=== PATIENT | female | born 1960 | race Two or more races ===

== ENCOUNTER 2016-11-20 13:35 | Emergency (ER) | payer BC, OTHER ==
[2016-11-20 13:41] VITALS: BP 128/80; PULSE 83; TEMP 98.6; BMI 27.3
--- NOTE | 2016-11-20 13:50 | PDOC ---
History of Present Illness - General History Source: Patient Exam Limitations: No Limitations - History of Present Illness Initial Comments: 11/20/16 14:59 The patient is a 56 year old female, with a significant past medical history of breast cancer(Bilateral mastectomy), GERD, and hyperlipidemia, who presents to the emergency department complaining of a nonproductive cough for approximately 4 days. The patient reports associated chest pain, but denies that the chest pain is pleuritic in nature. She reports associated headache, body aches, chills , and subjective fever. The patient reports her fever began last night, but reports she did not measure her TMax. The patient states she feels her chest is congested, but denies any shortness of breath, diaphoresis, or palpitations. The patient reports prior to the onset of her symptoms she was taking care of her 2.5 year old granddaughter, who had rhinorrhea and cough. The patient also reports she recently returned from [facility] on 11/10/16. However, prior to her trip to [facility], the patient reports 3 other episodes of severe coughing since July 2016. The patient denies any history of asthma. The patient reports taking robitussin with no relief. The patient denies any nausea, vomiting, diarrhea, or constipation. The patient reports a history of lower back pain prior to the onset of her symptoms, but denies dysuria, hematuria, frequency, or urgency. Allergies: Metoclopramide HCl, sulfamethoxazole, trimethoprim Past Surgical History: Bilateral mastectomy, total hysterectomy Social History: Non-smoker. Denies alcohol or drug use. PCP: Dr. Croft Surgeon: Dr. Joe <Homero Manuel - Last Filed: 11/20/16 15:01> - General History Source: Patient Exam Limitations: No Limitations <Anna Hutchison - Last Filed: 11/20/16 15:13> - General Chief Complaint: Respiratory Stated Complaint: COUGH Time Seen by Provider: 11/20/16 13:41 Past History <Homero Manuel - Last Filed: 11/20/16 15:01> - Past Medical History Anemia: No Asthma: No Cancer: Yes (RIGHT BREAST-DX 01/2013) Cardiac Disorders: No CVA: No COPD: No CHF: No Dementia: No Diabetes: No GI Disorders: Yes (GERD-2006) Disorders: No HTN: No Hypercholesterolemia: Yes (DX 2010) Liver Disease: No Seizures: No Thyroid Disease: No - Surgical History Abdominal Surgery: No Appendectomy: No Cardiac Surgery: No Cholecystectomy: No Lung Surgery: No Neurologic Surgery: No Orthopedic Surgery: No - Psycho/Social/Smoking Cessation Hx Anxiety: No Suicidal Ideation: No Smoking History: Never smoked Have you smoked in the past 12 months: No Hx Alcohol Use: No Drug/Substance Use Hx: No Substance Use Type: None Hx Substance Use Treatment: No <Anna Hutchison - Last Filed: 11/20/16 15:13> - Past Medical History Allergies/Adverse Reactions: Allergies Allergy/AdvReac Type Severity Reaction Status Date / Time metoclopramide HCl Allergy Severe RESPIRATORY Verified 11/20/16 13:37 [From Reglan] DISTRESS,SEIZURES sulfamethoxazole Allergy Severe RESPIRATORY Verified 11/20/16 13:37 [From Bactrim] DISTRESS,CHEST PAIN trimethoprim [From Bactrim] Allergy Severe RESPIRATORY Verified 11/20/16 13:37 DISTRESS,CHEST PAIN Home Medications: Ambulatory Orders Tamoxifen Citrate 20 mg PO DAILY 02/15/16 Azithromycin [Zithromax 250mg Tablets -] 250 mg PO UTDICT #6 tab 11/20/16 Guaifenesin [Mucinex -] 600 mg PO BID #14 tablet.er 11/20/16 Ranitidine HCl [Zantac] 300 mg PO 11/20/16 Review of Systems - Review of Systems Able to Perform ROS?: Yes Comments:: 11/20/16 14:59 GENERAL/CONSTITUTIONAL: Yes: +fever, +chills. No:weakness, loss of appetite. HEAD, EYES, EARS, NOSE AND THROAT: No: change in vision, ear pain, discharge, sore throat, throat swelling. CARDIOVASCULAR: Yes: +chest pain/tightness. No: lightheadedness, palpitations, syncope RESPIRATORY: Yes: +cough. No: shortness of breath, wheezing, hemoptysis, stridor. GASTROINTESTINAL: No: nausea, vomiting, abdominal cramping, diarrhea, rectal bleeding, constipation. GENITOURINARY: No: dysuria, hematuria, frequency, urgency, flank pain. MUSCULOSKELETAL: Yes: +sharp lower back pain. No: neck pain, joint pain, muscle swelling or pain SKIN AND BREASTS: No: lesions, pallor, rash or easy bruising. NEUROLOGIC: Yes: +headache. No: vertigo, paresthesias, weakness ENDOCRINE: No: unexplained weight gain or loss HEMATOLOGIC/LYMPHATIC: No: anemia, easy bleeding, swelling nodes <Juan Manuely - Last Filed: 11/20/16 15:01> *Physical Exam - Vital Signs Last Vital Signs Temp Pulse Resp BP Pulse Ox 98.6 F 83 18 128/80 100 11/20/16 13:36 11/20/16 13:36 11/20/16 13:36 11/20/16 13:36 11/20/16 13:36 - Physical Exam Comments: 11/20/16 15:00 GENERAL: The patient is in no acute distress. HEAD: Normal with no signs of trauma. EYES: PERRLA, EOMI, sclera anicteric, conjunctiva clear. ENT: Ears normal, nares patent, oropharynx clear without exudates. Moist mucous membranes. NECK: Normal range of motion, supple without lymphadenopathy, JVD, or masses. LUNGS: Breath sounds equal, clear to auscultation bilaterally. No wheezes, and no crackles. HEART:Regular rate and rhythm, normal S1 and S2 without murmur, rub or gallop. ABDOMEN: Soft, nontender, normoactive bowel sounds. No guarding, no rebound. EXTREMITIES: Normal range of motion, no edema. No clubbing or cyanosis. No erythema, or tenderness. NEUROLOGICAL: Cranial nerves II through XII grossly intact. Normal speech. No focal neurological deficits. MUSCULOSKELETAL: Back non-tender to palpation, no CVA tenderness SKIN: Warm, Dry, normal turgor, no rashes or lesions noted. <Homero Manuel - Last Filed: 11/20/16 15:01> - Vital Signs Last Vital Signs Temp Pulse Resp BP Pulse Ox 98.6 F 83 18 128/80 100 11/20/16 13:36 11/20/16 13:36 11/20/16 13:36 11/20/16 13:36 11/20/16 13:36 <Anna Hutchison - Last Filed: 11/20/16 15:13> ED Treatment Course - RADIOLOGY Radiograph Interpretation: 11/20/16 15:01 EXAM: CXR INTERPRETED BY: Dr. Barber REVIEWED BY: Dr. Hutchison IMPRESSION: No evidence of active pulmonary disease. - Medications Given in the ED: ED Medications Discontinued Medications Generic Name Dose Route Start Last Admin Trade Name Octavio PRN Reason Stop Dose Admin Guaifenesin 600 mg 11/20/16 14:29 11/20/16 14:36 Mucinex - PO 11/20/16 14:30 600 mg NOW ONE Administration <Homero Manuel - Last Filed: 11/20/16 15:01> Medical Decision Making - Medical Decision Making 11/20/16 13:50 A portion of this note was documented by scribe services under my direction. I have reviewed the details of the note, within reason, and agree with the documentation with the following case summary and management plan written by me. Nursing documentation reviewed and incorporated into medical decision making 11/20/16 15:04 This is a 56-year-old female with a prior history of hyperlipidemia, GERD, breast cancer s/p bilateral mastectomy who presents to the emergency department with a complaint of cough, congestion, chest pain. Patient states that she has had a non productive cough for 4 days Subjective fevers Chest pain which was initially present only when coughing, now persistent No dyspnea on exertion Pt did return from on 10/13 No lower extremity edema or pain Pt states this is the 4th time she has had these symptoms since July She was initially seen by her PMD when this happened previously She tried to follow up with her PMD today but there were no appointments Ill contact = granddaughter DD: pneumonia, bronchitis Less likely PE (pt primary complaint is cough, not chest pain or dyspnea) Will do CXR Pt asked to make an appointment with Dr Nina/Rebecca Return to the ER for worsening or persistent symptoms Return to the ER for new symptoms, if pt chest pain changes or worsens Will start Azithromycin <Anna Hutchison - Last Filed: 11/20/16 15:13> *DC/Admit/Observation/Transfer - Attestations Scribe Attestion: 11/20/16 15:00 Documentation prepared by Homero Manuel, acting as medical billing coordinator for Anna Hutchison MD. <Homero Manuel - Last Filed: 11/20/16 15:01> - Discharge Dispostion Admit: No <Anna Hutchison - Last Filed: 11/20/16 15:13> Diagnosis at time of Disposition: Bronchitis - Discharge Dispostion Disposition: HOME Condition at time of disposition: Stable - Referrals Referrals: Davie Nina MD [Staff Physician] - - Patient Instructions Printed Discharge Instructions: DI for Acute Bronchitis Additional Instructions: Fly Thank you for coming in to the ER today Please take medications as prescribed Please take your temperature Please return to the ER for fevers, chills, persistent cough, shortness of breath, chest pain, weakness Please follow up with your Primary Care physician within 3 days You can also follow up with the Lung Specialist (on your Discharge papers) for further evaluation
[2016-11-20] MEDS ORDERED: guaiFENesin 600 MG TABLET.ER (FP) PO ONE ×2 (14:29→14:34)
[2016-11-20] MEDS ORDERED: ACETAMINOPHEN 325 MG TABLET (FP) PO ONE (14:55)
[2016-11-20] MEDS ORDERED: ACETAMINOPHEN 325 MG TABLET (FP) ONE (15:09)
== END 2016-11-20 15:24 | disposition home or self-care (01) ==
LOC: FER 13:35
DX: J40 Bronchitis, not specified as acute or chronic (principal); Z85.3 Personal history of malignant neoplasm of breast; K21.9 Gastro-esophageal reflux disease without esophagitis; E78.5 Hyperlipidemia, unspecified
CPT/HCPCS: 71020-TC; 99281-25

== ENCOUNTER 2018-01-27 13:53 | Emergency (ER) | payer BC, OTHER ==
[2018-01-27 14:12] VITALS: BP 109/66; PULSE 63; TEMP 98.4; BMI 29.0
[2018-01-27] MEDS ORDERED: MECLIZINE HCL 25 MG TABLET (FP) PO ONE (14:48)
[2018-01-27] MEDS ORDERED: ONDANSETRON 4 MG TABLET PO ONE ×2 (14:50→14:53)
[2018-01-27] MEDS ORDERED: MECLIZINE HCL 25 MG TABLET (FP) ONE (14:53)
--- NOTE | 2018-01-27 15:11 | PDOC ---
History of Present Illness <Nagi Robbins - Last Filed: 01/27/18 17:37> - General History Source: Patient Exam Limitations: No Limitations - History of Present Illness Initial Comments: 01/27/18 18:05 The patient is a 57 year old female with a significant past medical history of right breast cancer (s/p bilateral mastectomy) currently on tamoxifen, GERD, and hyperlipidemia who presents to the emergency department for evaluation of dizziness. The patient reports episode of constant dizziness (room spinning) with associated nausea for a duration of 2 hours beginning at 630pm yesterday before improving. She reports the symptoms were intermittent in nature after 2 hours and is exacerbated by turning either side or walking; however, notes that it is alleviated when lying supine. The patient states she required her s assistance to ambulate due to her severe dizziness. Today, the patient reports generalized weakness and mild intermittent dizziness also worse with movement and improves with rest, which she notes is not as severe as yesterday. She reports one episode of palpitations earlier today. Pt endorses associated nausea with no emesis with her episodes of dizziness. She states she has been feeling off which prompted her to visit the ED for further evaluation. The patient denies any previous history of the aforementioned symptoms. The patient denies chest pain, abdominal pain, shortness of breath, headache, changes to vision/hearing, and changes in speech. Denies fevers, chills, vomiting, diarrhea, constipation, melena, and hematochezia. Denies dysuria, frequency, urgency, and hematuria. Allergies: Metoclopramide HCl, sulfamethoxazole, trimethoprim Past surgical history: Bilateral mastectomy. Social history: No reported cigarette, alcohol, or drug use. PCP: Dr. Shahriar Croft <Tina Salomon - Last Filed: 01/27/18 18:06> - General Chief Complaint: Lightheaded Stated Complaint: DIZZINESS NAUSEA LAST NIGHT Time Seen by Provider: 01/27/18 14:03 Past History - Past Medical History Anemia: No Asthma: No Cancer: Yes (RIGHT BREAST-DX 01/2013) Cardiac Disorders: No CVA: No COPD: No CHF: No Dementia: No Diabetes: No GI Disorders: Yes (GERD-2006) Disorders: No HTN: No Hypercholesterolemia: Yes (DX 2010) Liver Disease: No Seizures: No Thyroid Disease: No - Surgical History Abdominal Surgery: No Appendectomy: No Cardiac Surgery: No Cholecystectomy: No Lung Surgery: No Neurologic Surgery: No Orthopedic Surgery: No - Suicide/Smoking/Psychosocial Hx Smoking History: Never smoked Have you smoked in the past 12 months: No Information on smoking cessation initiated: Yes Hx Alcohol Use: No Drug/Substance Use Hx: No Substance Use Type: None Hx Substance Use Treatment: No <Nagi Robbins - Last Filed: 01/27/18 17:37> <Tina Salomon - Last Filed: 01/27/18 18:06> - Past Medical History Allergies/Adverse Reactions: Allergies Allergy/AdvReac Type Severity Reaction Status Date / Time metoclopramide HCl Allergy Severe RESPIRATORY Verified 01/27/18 13:57 [From Reglan] DISTRESS,SEIZURES sulfamethoxazole Allergy Severe RESPIRATORY Verified 01/27/18 13:57 [From Bactrim] DISTRESS,CHEST PAIN trimethoprim [From Bactrim] Allergy Severe RESPIRATORY Verified 01/27/18 13:57 DISTRESS,CHEST PAIN Home Medications: Ambulatory Orders Tamoxifen Citrate 20 mg PO DAILY 02/15/16 Ranitidine HCl [Zantac] 300 mg PO HS 11/20/16 Esomeprazole Magnesium [Nexium 24Hr] 20 mg PO DAILY 01/27/18 Meclizine HCl [Antivert -] 25 mg PO TID PRN #14 tablet 01/27/18 Review of Systems - Review of Systems Able to Perform ROS?: Yes Comments:: CONSTITUTIONAL:(+)Generalized Weakness. No reported: Fever, Chills, Diaphoresis, Malaise, Loss of Appetite HEENT: No reported: Rhinorrhea, Nasal Congestion, Throat Pain, Throat Swelling, Difficulty Swallowing, Mouth Swelling, Ear Pain, Eye Pain, Visual Changes CARDIOVASCULAR: (+)Palpitations. (+)Lightheadedness. No reported: Chest Pain, Syncope, Irregular Heart Rate, Peripheral Edema RESPIRATORY: No reported: Cough, Shortness of Breath, SOB with Exertion, Orthopnea, Wheezing , Stridor, Hemoptysis GASTROINTESTINAL: (+)Nausea. No reported: Abdominal pain, Abdominal Distension, Vomiting, Diarrhea, Constipation, Melena, Hematochezia GENITOURINARY: No reported: Dysuria, Frequency, Urgency, Hesitancy, Flank Pain, Genital Pain MUSCULOSKELETAL: No reported: Myalgia, Arthralgia, Joint Swelling, Back pain. SKIN: No reported: Rash, Itching, Pallor HEMATOLOGIC/IMMUNOLOGIC: No reported: Easy Bleeding, Easy Bruising, Lymphadenopathy, Frequent infections ENDOCRINE: No reported: Unexplained Weight Gain, Unexplained Weight Loss, Heat Intolerance , Cold Intolerance NEUROLOGIC: (+)Lightheadedness. No reported: Headache, Focal Weakness, Paresthesias, Vertigo, Unsteady Gait, Seizure, Mental Status Changes, Incontinence PSYCHIATRIC: No reported: Anxiety, Depression <Tina Salomon - Last Filed: 01/27/18 18:06> *Physical Exam - Vital Signs Last Vital Signs Temp Pulse Resp BP Pulse Ox 98.4 F 63 16 109/66 100 01/27/18 13:54 01/27/18 13:54 01/27/18 13:54 01/27/18 13:54 01/27/18 13:54 <Nagi Robbins - Last Filed: 01/27/18 17:37> - Vital Signs Last Vital Signs Temp Pulse Resp BP Pulse Ox 98.4 F 63 16 109/66 100 01/27/18 13:54 01/27/18 13:54 01/27/18 13:54 01/27/18 13:54 01/27/18 13:54 - Physical Exam Comments: GENERAL: The patient is awake, alert, and fully oriented, Nontoxic - in no acute distress. HEAD: Normocephalic, atraumatic. EYES: extraocular movements intact, sclera anicteric, conjunctiva clear, + extinguishing horizontal nystagmus ENT: Normal voice, Moist mucous membranes, no carotid bruits appreciated NECK: Normal range of motion, supple LUNGS: Breath sounds equal, clear to auscultation bilaterally. No wheezes, no rhonchi, no rales. HEART: Regular rate and rhythm, without murmur, rub or gallop. ABDOMEN: Soft, nontender, No guarding, no rebound.No CVA tenderness EXTREMITIES: Normal range of motion, no edema. No cyanosis. No erythema, or tenderness. PSYCH: Normal mood, normal affect. SKIN: Warm, Dry, normal turgor. NEURO: Mental status: The patient is oriented x3. Cranial nerves: Cranial nerves II through XII are intact Motor: The upper extremities are 5 over 5 in all muscle groups. The lower extremities are 5 over 5 in all muscle groups. Negative pronator drift Sensation: Sensation is intact to light touch throughout. romberg negative Cerebellar: [id number] is normal in both upper extremities. rapid alternating movements are normal. Gait: Normal. <Tina Salomon - Last Filed: 01/27/18 18:06> Heart Score/ECG Review - ECG Impressions Comment:: 01/27/18 15:12 Twelve-lead EKG was performed and reviewed by me. There is normal sinus rhythm with a normal rate. Rate of 65 The axis is normal. The intervals are normal. There is normal R wave progression T wave flattening noted in lead 3 <Nagi Robbins - Last Filed: 01/27/18 17:37> ED Treatment Course - LABORATORY CBC & Chemistry Diagram: 01/27/18 15:03 01/27/18 15:03 - RADIOLOGY Radiology Studies Ordered: Category Date Time Status HEAD CT WITHOUT CONTRAST [CT] Stat CT Scan 01/27/18 14:39 Ordered - Medications Given in the ED: ED Medications Discontinued Medications Generic Name Dose Route Start Last Admin Trade Name Octavio PRN Reason Stop Dose Admin Meclizine HCl 25 mg 01/27/18 14:48 01/27/18 14:56 Antivert - PO 01/27/18 14:49 25 mg ONCE ONE Administration Ondansetron HCl 4 mg 01/27/18 14:50 01/27/18 14:56 Zofran - PO 01/27/18 14:51 4 mg ONCE ONE Administration <RosendoNagi - Last Filed: 01/27/18 17:37> - LABORATORY CBC & Chemistry Diagram: 01/27/18 15:03 01/27/18 15:03 - ADDITIONAL ORDERS Additional order review: Laboratory Results 01/27/18 15:03 Sodium 134 L Potassium 3.2 L D Chloride 104 Carbon Dioxide 23 Anion Gap 7 L BUN 11 D Creatinine < 0.8 D Creat Clearance w eGFR > 60 Random Glucose 101 Calcium 8.9 Total Bilirubin < 0.5 D AST 23 D ALT 15 D Alkaline Phosphatase 48 Total Protein 6.4 Albumin 3.9 01/27/18 15:03 RBC 4.54 MCV 86.2 MCHC 33.2 RDW 14.0 MPV 7.9 Neutrophils % 58.3 Lymphocytes % 34.5 Monocytes % 5.8 Eosinophils % 0.8 Basophils % 0.6 - Medications Given in the ED: ED Medications Discontinued Medications Generic Name Dose Route Start Last Admin Trade Name Octavio PRN Reason Stop Dose Admin Meclizine HCl 25 mg 01/27/18 14:48 01/27/18 14:56 Antivert - PO 01/27/18 14:49 25 mg ONCE ONE Administration Ondansetron HCl 4 mg 01/27/18 14:50 01/27/18 14:56 Zofran - PO 01/27/18 14:51 4 mg ONCE ONE Administration Potassium Chloride 40 meq 01/27/18 17:34 01/27/18 17:43 K-Dur - PO 01/27/18 17:35 40 meq ONCE ONE Administration <Tina Salomon - Last Filed: 01/27/18 18:06> Medical Decision Making - Medical Decision Making 01/27/18 15:08 57y F hx of hl, breast ca s/p b/l mastetomy 4 years ago, currently on tamaxifen presents with complaint of dizziness. Pt states last night, she suddenly felt dizzy/off balance/vertigo, lastd approximately 2 hrs before improving then was intermittent and worse with head movement or ambualtion and resolved at rest without associated vision changes, diplopia, dysarthria, new numbness/tingling/ weakness, headache, ear ringing. on exam pt in no distress with unremarkble exam beside mild extinguishing horizontal nystagmus suspet peripheral vertigo will ck labs to r/o anemia, metabolic dernagement zofran/meclizine ct head due to hx of ca A portion of this note was documented by scribe services under my direction. I have reviewed the details of the note, within reason, and agree with the documentation with the following case summary and management plan written by me 01/27/18 17:37 pts labs reviewed noted for mild hypokalemia - will replete with PO pt feeling imroved was able to ambulate the bathroom. suspect peripheral vertigo will dc with pmd and ent fu return precautions were discussed I discussed the physical exam findings, ancillary test results and final diagnoses with the patient. I answered all of the patient's questions. The patient was satisfied with the care received and felt comfortable with the discharge plan and treatment plan. The patient will call their primary care physician within 24 hours to arrange follow-up and will return to the Emergency Department with any new, persistent or worsening symptoms. <Nagi Robbins - Last Filed: 01/27/18 17:37> *DC/Admit/Observation/Transfer - Discharge Dispostion Decision to Admit order: No <Nagi Robbins - Last Filed: 01/27/18 17:37> - Attestations Scribe Attestion: Documentation prepared by Tina Salomon, acting as medical leader for Nagi Robbins MD. <Tina Salomon - Last Filed: 01/27/18 18:06> Diagnosis at time of Disposition: Hypokalemia Vertigo, peripheral Qualifiers: Laterality: unspecified laterality Qualified Code(s): H81.399 - Other peripheral vertigo, unspecified ear - Discharge Dispostion Disposition: HOME Condition at time of disposition: Improved - Prescriptions Prescriptions: Meclizine HCl [Antivert -] 25 mg PO TID PRN #14 tablet PRN Reason: Vertigo - Referrals Referrals: Shahriar Croft [Other] Riki Guevara MD [Staff Physician] - - Patient Instructions Printed Discharge Instructions: DI for Vertigo Additional Instructions: Return to the emergency department immediately with ANY new, persistent or worsening symptoms during any headache, blurry vision or double vision, problems with your speech, weakness, numbness, tingling or any other concerns. Take the Meclizine as needed for your vertigo. Your potassium level was a little low - we gave you supplemental potassium, but follow up with dr. Croft to have this rechecked. You MUST call and follow up with your doctor in 3-4 days for further evaluation of your symptoms. Results were discussed with you. Please make sure your doctor reviews the results of your emergency evaluation.
[2018-01-27 15:19] LABS: BASO % 0.6 % (0-2.0); EOS % 0.8 % (0-4.5); HEMATOCRIT 39.2 % (32.4-45.2); LYMPH % 34.5 % (8-40); MCH 28.6 pg (25.7-33.7); MCHC 33.2 g/dl (32.0-36.0); MEAN CELL VOLUME 86.2 fl (80-96); MEAN PLT VOLUME 7.9 fl (7.5-11.1); MONO % 5.8 % (3.8-10.2); NEUT % 58.3 % (42.8-82.8); PLATELET COUNT 205 K/MM3 (134-434); RBC 4.54 M/mm3 (3.60-5.2); WHITE BLOOD COUNT 4.1 K/mm3 (4.0-10.8)
[2018-01-27 15:27] LABS: ALBUMIN 3.9 g/dl (3.5-5.0); ALK PHOS 48 U/L (32-92); ANION GAP 7 (8-16); BLOOD UREA NITROGEN 11 mg/dl (7-18); CALCIUM 8.9 mg/dl (8.4-10.2); CHLORIDE 104 mmol/L (98-107); CO2 23 mmol/L (22-28); GLUCOSE,RANDOM 101 mg/dl (74-106); POTASSIUM 3.2 mmol/L (3.5-5.1); SGOT/AST 23 U/L (10-42); SGPT/ALT 15 U/L (10-40); SODIUM 134 mmol/L (136-145); TOT PROT 6.4 g/dl (6.4-8.3)
[2018-01-27 15:31] LABS: BILIRUBIN,TOTAL < 0.5 mg/dl (0.2-1.0); CREATININE < 0.8 mg/dl (0.6-1.3)
[2018-01-27] MEDS ORDERED: POTASSIUM CHLORIDE TABS 20 MEQ TABLET.ER (FP) PO ONE ×2 (17:34→17:42)
--- NOTE | 2018-01-28 10:00 | EKG ---
Test Reason : Blood Pressure : / mmHG Vent. Rate : 065 BPM Atrial Rate : 065 BPM P-R Int : 190 ms QRS Dur : 074 ms QT Int : 422 ms P-R-T Axes : 059 017 029 degrees QTc Int : 438 ms NORMAL SINUS RHYTHM POSSIBLE LEFT ATRIAL ENLARGEMENT BORDERLINE ECG NO PREVIOUS ECGS AVAILABLE Confirmed by NATHANAEL BOX, TEA ([id number]) on 01/28/2018 9:59:51 AM Referred By: NABILA HOLLEY Confirmed By:TEA HUFFMAN MD
== END 2018-01-27 17:49 | disposition home or self-care (01) ==
LOC: FER 13:53
DX: E87.6 Hypokalemia (principal); H81.399 Other peripheral vertigo, unspecified ear; I10 Essential (primary) hypertension; Z85.3 Personal history of malignant neoplasm of breast
CPT/HCPCS: 36415; 70450-TC; 80053; 85025; 93005; 99282-25

== ENCOUNTER 2018-06-03 14:06 | Emergency (ER) | payer BC, OTHER ==
[2018-06-03 14:14] VITALS: TEMP 98.5; BMI 27.9
--- NOTE | 2018-06-03 14:15 | PDOC ---
History of Present Illness - General Chief Complaint: Respiratory Stated Complaint: cough,fever,body aches Time Seen by Provider: 06/03/18 14:14 - History of Present Illness Initial Comments: 58 yo F with a pmh of right breast cancer (s/p bilateral mastectomy) currently on tamoxifen, GERD, and hyperlipidemia is here with subjective fevers, a sore throat, body aches, productive cough of bloody sputum, and chest pain. She is afebrile here in the ED but she has taken Tylenol for her illness. She was last well one week ago Friday. on , she developed a sore throat. On Friday she started having body aches and fevers then on Friday started having a cough. The body aches and fevers went away but the cough worsened. She visited her PCP on Friday who prescribed her Azithromycin. She has been taking azithromycin since friday but states the cough has not gone away and now has become bloody. She has also had pleuritic chest pain associated with her cough. She came to the ER today because she was short of breath and worried about her bloody sputum. She has a history of cancer, and a history of recent travel to the [place]. She also takes tamoxifen. She states she received the BCG vaccine before she immigrated to the [place] when she was a little girl. She denies any current immunodeficiency, denies ever having been to nursing home, denies close contact with people who were recently in nursing home. PCP: Dr. Croft Allergies: Bactrim, metoclopramide. Social Hx: Denies smoking, alcohol, or illicit drug usage. Denies IVDU. Past History - Past Medical History Allergies/Adverse Reactions: Allergies Allergy/AdvReac Type Severity Reaction Status Date / Time metoclopramide HCl Allergy Severe RESPIRATORY Verified 06/03/18 14:07 [From Reglan] DISTRESS,SEIZURES sulfamethoxazole Allergy Severe RESPIRATORY Verified 06/03/18 14:07 [From Bactrim] DISTRESS,CHEST PAIN trimethoprim [From Bactrim] Allergy Severe RESPIRATORY Verified 06/03/18 14:07 DISTRESS,CHEST PAIN Home Medications: Ambulatory Orders Tamoxifen Citrate 20 mg PO DAILY 02/15/16 Ranitidine HCl [Zantac] 300 mg PO HS 11/20/16 Esomeprazole Magnesium [Nexium 24Hr] 20 mg PO DAILY 01/27/18 Meclizine HCl [Antivert -] 25 mg PO TID PRN #14 tablet 01/27/18 Azithromycin [Zithromax -] 250 mg PO DAILY 06/03/18 Dextromethorphan HBr [Robitussin] 15 mg PO BID #14 capsule 06/03/18 Anemia: No Asthma: No Cancer: Yes (RIGHT BREAST-DX 01/2013) Cardiac Disorders: No CVA: No COPD: No CHF: No Dementia: No Diabetes: No GI Disorders: Yes (GERD-2006) Disorders: No HTN: No Hypercholesterolemia: Yes (DX 2010) Liver Disease: No Seizures: No Thyroid Disease: No - Surgical History Abdominal Surgery: No Appendectomy: No Cardiac Surgery: No Cholecystectomy: No Lung Surgery: No Neurologic Surgery: No Orthopedic Surgery: No - Suicide/Smoking/Psychosocial Hx Smoking History: Never smoked Have you smoked in the past 12 months: No Hx Alcohol Use: No Drug/Substance Use Hx: No Substance Use Type: None Hx Substance Use Treatment: No Review of Systems - Review of Systems Comments:: GENERAL/CONSTITUTIONAL: + Fevers, chills, and weakness. HEAD, EYES, EARS, NOSE AND THROAT: + sore throat. No change in vision. No ear pain or discharge. CARDIOVASCULAR: +chest pain, + Shortness of breath. RESPIRATORY: + cough, + wheezing, +hemoptysis. GASTROINTESTINAL: + Diarrhea. No nausea, vomiting, or constipation. GENITOURINARY: No dysuria, frequency, or change in urination. MUSCULOSKELETAL: + myalgias. No joint or muscle swelling. No neck or back pain. SKIN: No rash NEUROLOGIC: No headache, vertigo, loss of consciousness, or change in strength/ sensation. ENDOCRINE: No increased thirst. No abnormal weight change. HEMATOLOGIC/LYMPHATIC: No anemia, easy bleeding, or history of blood clots. ALLERGIC/IMMUNOLOGIC: No hives or skin allergy. *Physical Exam - Vital Signs Last Vital Signs Temp Pulse Resp BP Pulse Ox 98.5 F 71 18 114/49 L 100 06/03/18 14:07 06/03/18 14:07 06/03/18 14:07 06/03/18 14:07 06/03/18 14:07 - Physical Exam Comments: GENERAL: Awake, alert, and fully oriented, in no acute distress HEAD: No signs of trauma EYES: PERRLA, EOMI, sclera anicteric, conjunctiva clear ENT: Auricles normal inspection, hearing grossly normal, nares patent, oropharynx clear without exudates. Moist mucosa NECK: Normal ROM, supple, no lymphadenopathy, JVD, or masses LUNGS: Possible crackles in upper Left lobe. Otherwise lung sounds are clear. HEART: Regular rate and rhythm, normal S1 and S2, no murmurs, rubs or gallops ABDOMEN: Soft, nontender, normoactive bowel sounds. No guarding, no rebound. No masses EXTREMITIES: Normal range of motion, no edema. No clubbing or cyanosis. No cords, erythema, or tenderness NEUROLOGICAL: Cranial nerves II through XII grossly intact. Normal speech, normal gait SKIN: Warm, Dry, normal turgor, no rashes or lesions noted. ED Treatment Course - LABORATORY CBC & Chemistry Diagram: 06/03/18 15:10 06/03/18 15:10 Medical Decision Making - Medical Decision Making 58 yo F with a pmh of right breast cancer (s/p bilateral mastectomy) currently on tamoxifen, GERD, and hyperlipidemia is here with subjective fevers, a sore throat, body aches, productive cough of bloody sputum, and chest pain. DD includes but not limited to: PNA, bronchitis, PE, TB, Influenza, Cancer recurrence, ACS. Plan: Cbc, Cmp, Trop, Ekg, CXR, IVF - NS, Rapid influenza, Re-assess. EKG shows normal sinus rhythm and has no acute changes from prior EKG in . No sinus tachycardia, no RBBB or right axis deviation, no S1Q3T3. CXR shows no signs of active TB or acute infection. Lab work unremarkable. Patiewnt feels good and is stable for DC. Will Dc with strict return precautions and robitussin for her cough. *DC/Admit/Observation/Transfer Diagnosis at time of Disposition: Viral bronchitis - Discharge Dispostion Disposition: HOME Condition at time of disposition: Stable Decision to Admit order: No - Prescriptions Prescriptions: Dextromethorphan HBr [Robitussin] 15 mg PO BID #14 capsule - Referrals Referrals: Jake Holman MD [Staff Physician] - - Patient Instructions Printed Discharge Instructions: DI for Acute Bronchitis Additional Instructions: You Came into the ER with a cough productive of a little blood. We did some tests on you in the ER including a chest X-ray, looked at your bloodwork, and did an electrocardiogram. We believe the reason you are feeling the way you do is most likely a result of something called acute viral bronchitis - Please see attached handout for further description. Please take tylenol and ibuprofin/ motrin/advil as needed for fevers and pain control. Please make sure to follow up with your primary care doctor in the next 3 to 5 days to make sure you are getting better and feeling better. Come back to the emergency room if your cough worsens, you develop a high fever, start vomiting, have severe chest pain or have any other new or worsening concerns. Please make sure and finish your antibiotics as you are prescribed. Please also goto the pharmacy to strip picker the robitussin we are sending for you. Thank you for coming to the [facility] ER. We hope you feel better soon! Print Language: NAURUAN - Post Discharge Activity
[2018-06-03] MEDS ORDERED: SODIUM CHLORIDE 0.9% 500 ML INFUS.BAG IV ONE (14:32)
--- NOTE | 2018-06-03 14:45 | PDOC ---
Attending Attestation - Resident Resident Name: Meek Mosley - ED Attending Attestation I have performed the following: I have examined & evaluated the patient, The case was reviewed & discussed with the resident, I agree w/resident's findings & plan, Exceptions are as noted - HPI HPI: 06/03/18 16:03 Nonproductive cough for about 3 weeks. No fever, chest pain, shortness of breath , sputum production, or hematemesis. - Physicial Exam PE: 06/03/18 16:03 Physical exam is negative. She is afebrile. Lungs are clear. ENT is clear. Respiratory rate and O2 saturation are normal. - Medical Decision Making 06/03/18 16:04 Assessment: Although the patient has not been told she is asthmatic, her history suggests seasonal ALLERGIES with concomitant bronchospasm during the spring and fall. Plan: Trial of bronchodilator, long-acting, and inhaled corticosteroid along with expectorant/cough suppressant at night. Refer to pulmonary if symptoms
[2018-06-03 15:18] LABS: BASO % 0.4 % (0-2.0); EOS % 0.7 % (0-4.5); HEMATOCRIT 38.7 % (32.4-45.2); HEMOGLOBIN 12.7 GM/dl (10.7-15.3); LYMPH % 31.5 % (8-40); MCH 28.5 pg (25.7-33.7); MCHC 32.8 g/dl (32.0-36.0); MEAN CELL VOLUME 86.8 fl (80-96); MEAN PLT VOLUME 7.7 fl (7.5-11.1); MONO % 6.3 % (3.8-10.2); NEUT % 61.1 % (42.8-82.8); PLATELET COUNT 214 K/MM3 (134-434); RBC 4.46 M/mm3 (3.60-5.2); RDW 13.3 % (11.6-15.6); WHITE BLOOD COUNT 3.6 K/mm3 (4.0-10.8)
[2018-06-03 15:27] LABS: ALBUMIN 3.4 g/dl (3.5-5.0); ALK PHOS 50 U/L (32-92); ANION GAP 4 MMOL/L (8-16); BILIRUBIN,TOTAL 0.2 mg/dl (0.2-1.0); BLOOD UREA NITROGEN 13 mg/dl (7-18); CALCIUM 8.6 mg/dl (8.4-10.2); CHLORIDE 105 mmol/L (98-107); CO2 25 mmol/L (22-28); CREATININE < 0.6 mg/dl (0.6-1.3); GLUCOSE,RANDOM 102 mg/dl (74-106); POTASSIUM 3.5 mmol/L (3.5-5.1); SGOT/AST 18 U/L (10-42); SGPT/ALT 11 U/L (10-40); SODIUM 134 mmol/L (136-145); TOT PROT 6.3 g/dl (6.4-8.3)
--- NOTE | 2018-06-03 16:30 | PDOC ---
Attending Attestation - Resident Resident Name: Meek Mosley - ED Attending Attestation I have performed the following: I have examined & evaluated the patient, The case was reviewed & discussed with the resident, I agree w/resident's findings & plan, Exceptions are as noted - HPI HPI: 06/03/18 16:26 Patient with URI/cough symptoms for several days. No fever, shortness of breath , or wheezing. There are reportedly flecks of blood in the sputum, but the patient has a sore throat as well. 06/03/18 16:27 - Physicial Exam PE: 06/03/18 16:26 Physical exam is notable only for nasal congestion, watery nasal discharge, and cough. The lungs are clear. There is no tachypnea or dyspnea. O2 saturations 100 % - Medical Decision Making 06/03/18 16:28 Labs are unremarkable. The white count is 3.6, but this is in the normal range for the patient as evidenced by prior CBCs dating back to 2016. Chest x-ray is clear with no sign of infiltrates or other significant lung disease The patient is already taking Zithromax. The likely diagnosis is acute bronchitis. To finish Zithromax and take cough suppressant for comfort at night and Tylenol as needed. To follow-up primary physician or return to the ER if symptoms worsen fully ambulatory and in no distress respiratory or otherwise at discharge with family to follow-up as directed 06/03/18 16:28
[2018-06-03 17:00] VITALS: BP 116/56; PULSE 70
--- NOTE | 2018-06-04 12:12 | EKG ---
Test Reason : Blood Pressure : / mmHG Vent. Rate : 082 BPM Atrial Rate : 082 BPM P-R Int : 176 ms QRS Dur : 068 ms QT Int : 368 ms P-R-T Axes : 063 031 061 degrees QTc Int : 429 ms NORMAL SINUS RHYTHM NONSPECIFIC ST ABNORMALITY ABNORMAL ECG WHEN COMPARED WITH ECG OF 27-JAN-2018 14:55, NO SIGNIFICANT CHANGE WAS FOUND Confirmed by GULSHAN ORTEGA MD ([id number]) on 06/04/2018 12:12:23 PM Referred By: MARIE GUPTA Confirmed By:GULSHAN ORTEGA MD
== END 2018-06-03 17:00 | disposition home or self-care (01) ==
LOC: FER 14:06
PROC: 3E0337Z Introduction of Electrolytic and Water Balance Substance into Peripheral Vein, Percutaneous Approach (ICD-10-PCS; principal; 2018-06-03)
DX: J20.8 Acute bronchitis due to other specified organisms (principal); E78.5 Hyperlipidemia, unspecified; Z85.3 Personal history of malignant neoplasm of breast; K21.9 Gastro-esophageal reflux disease without esophagitis
CPT/HCPCS: 36415; 71045-TC-FY; 80053; 84484; 85025; 87040; 87804; 93005; 99283-25

== ENCOUNTER 2021-11-22 09:42 | Emergency (ER) | payer BC, OTHER ==
[2021-11-22 09:58] VITALS: BMI 28.0
[2021-11-22] MEDS ORDERED: ACETAMINOPHEN 1000 MG/100 ML BAG IVPB ONE (10:04)
[2021-11-22] MEDS ORDERED: SODIUM CHLORIDE 0.9% 500 ML INFUS.BAG IV ONE (10:04)
[2021-11-22] MEDS ORDERED: ONDANSETRON 4 MG/2 ML VIAL IVPUSH ONE (10:04)
[2021-11-22] MEDS ORDERED: ONDANSETRON 4 MG/2 ML VIAL ONE (10:12)
[2021-11-22] MEDS ORDERED: ACETAMINOPHEN INJECTION 100 ML IVPB ONE (10:12)
[2021-11-22 10:36] LABS: INR 1.06 (0.83-1.09); PROTHROMBIN TIME (PATIENT) 12.2 SEC (9.7-13.0)
[2021-11-22 10:39] LABS: ACTIVATED PTT 32.6 SECONDS (25.2-36.5)
[2021-11-22 10:44] LABS: ALBUMIN 3.9 g/dl (3.4-5.0); BILIRUBIN,TOTAL 1.1 mg/dl (0.2-1); CALCIUM 8.8 mg/dl (8.5-10); CREATININE 0.6 mg/dl (0.55-1.3); TOT PROT 6.6 g/dl (6.4-8.2)
[2021-11-22 13:24] LABS: BASO % 0.3 % (0-2.0); EOS % 0.4 % (0-4.5); HEMATOCRIT 40.4 % (32.4-45.2); HEMOGLOBIN 13.2 GM/dL (10.7-15.3); MCH 27.6 pg (25.7-33.7); MCHC 32.6 g/dl (32.0-36.0); MEAN CELL VOLUME 84.7 fl (80-96); MEAN PLT VOLUME 8.4 fl (7.5-11.1); MONO % 7.6 % (3.8-10.2); NEUT % 70.7 % (42.8-82.8); PLATELET COUNT 173 10^3/uL (134-434); RBC 4.77 M/mm3 (3.60-5.2); RDW 14.5 % (11.6-15.6); WHITE BLOOD COUNT 4.5 K/mm3 (4.0-10.0)
[2021-11-22 13:53] VITALS: PULSE 60; TEMP 98.1
[2021-11-22] MEDS ORDERED: SODIUM CHLORIDE 1,000 ML IV ONE (14:10)
[2021-11-22 15:26] VITALS: BP 91/60
[2021-11-22] MEDS ORDERED: LACTATED RINGERS SOLUTION 1000 ML INFUS.BAG IV ONE (15:32)
== END 2021-11-22 17:03 | disposition home or self-care (01) ==
LOC: FER 09:42
PROC: 3E0333Z Introduction of Anti-inflammatory into Peripheral Vein, Percutaneous Approach (ICD-10-PCS; principal; 2021-11-22)
PROC: 3E033GC Introduction of Other Therapeutic Substance into Peripheral Vein, Percutaneous Approach (ICD-10-PCS; 2021-11-22)
PROC: 3E0337Z Introduction of Electrolytic and Water Balance Substance into Peripheral Vein, Percutaneous Approach (ICD-10-PCS; 2021-11-22)
DX: R10.13 Epigastric pain (principal); R10.32 Left lower quadrant pain; R11.2 Nausea with vomiting, unspecified
CPT/HCPCS: 36415; 74177-TC; 80053; 81003; 81015; 83690; 84484; 85025; 85610; 85730; 86850; 86900; 86901; 87086; 93005; 99285-25

== ENCOUNTER 2024-06-10 03:55 | Inpatient (IN) | payer BC, OTHER ==
[2024-06-10] MEDS ORDERED: HEPARIN NA (PORCINE) 5,000 UNITS/ML 1ML VIAL ONE (07:22)
[2024-06-10] MEDS ORDERED: PAPAVERINE HCL 30 MG/1 ML 10 ML VIAL NR ONE (07:22)
[2024-06-10] MEDS ORDERED: BUPIVACAINE LIPOSOME/PF (EXPAREL) 266 MG/20 ML VIAL ONE (07:22)
[2024-06-10] MEDS ORDERED: BUPIVACAINE HCL/PF 0.25% (2.5MG/ML) 10 ML VIAL ONE (07:22)
[2024-06-10] MEDS ORDERED: MIDAZOLAM HCL 2 MG/2 ML SINGLE DOSE VIAL ONE (07:44)
[2024-06-10] MEDS ORDERED: ROCURONIUM BROMIDE 50 MG/5 ML SYRINGE ONE ×3 (07:49→17:04)
[2024-06-10] MEDS ORDERED: PROPOFOL 20 ML ONE ×2 (07:51→08:31)
[2024-06-10] MEDS ORDERED: SUGAMMADEX SODIUM 200 MG/2 ML VIAL ONE (07:53)
[2024-06-10] MEDS ORDERED: DEXAMETHASONE SOD PHOSPHATE 4 MG/1 ML VIAL ONE (07:54)
[2024-06-10] MEDS ORDERED: ONDANSETRON 4 MG/2 ML VIAL ONE ×2 (07:54→18:12)
[2024-06-10] MEDS: ceFAZolin SODIUM 1 GM VIAL IVPB ONE (08:36)
[2024-06-10] MEDS: HEPARIN NA (PORCINE) 5,000 UNITS/ML 1ML VIAL SQ ONE ×2 (08:40→09:50)
[2024-06-10] MEDS: BUPIVACAINE HCL/PF 0.25% (2.5MG/ML) 10 ML VIAL IJ ONE ×2 (09:51→12:10)
[2024-06-10] MEDS: BUPIVACAINE LIPOSOME/PF (EXPAREL) 266 MG/20 ML VIAL NR ONE ×2 (09:52→12:10)
[2024-06-10] MEDS ORDERED: ceFAZolin SODIUM 1 GM VIAL ONE (13:49)
[2024-06-10] MEDS ORDERED: HYDROmorphone HCl 2 MG/ML VIAL ONE (15:57)
[2024-06-10] MEDS ORDERED: PROMETHAZINE HCL 25 MG/1 ML VIAL IVPB PRN (18:32)
[2024-06-10] MEDS ORDERED: ONDANSETRON 4 MG/2 ML VIAL IVPUSH PRN ×2 (18:32→19:19)
[2024-06-10] MEDS ORDERED: diazePAM 5 MG TABLET PO PRN (18:54)
[2024-06-10] MEDS ORDERED: ACETAMINOPHEN INJECTION 100 ML ONE (19:11)
[2024-06-10] MEDS: LACTATED RINGERS SOLUTION 1,000 ML IV SCH (19:17)
[2024-06-10] MEDS: ACETAMINOPHEN 1000 MG/100 ML BAG IVPB ONE (19:18)
[2024-06-10 19:49] LABS: BASO % 0.1 % (0-2.0); HEMATOCRIT 32.7 % (32.4-45.2); HEMOGLOBIN 10.8 GM/dL (10.7-15.3); LYMPH % 6.4 % (8-40); MCHC 32.9 g/dl (32.0-36.0); MEAN CELL VOLUME 88.2 fl (80-96); MEAN PLT VOLUME 8.2 fl (7.5-11.1); MONO % 7.9 % (3.8-10.2); NEUT % 85.6 % (42.8-82.8); PLATELET COUNT 197 10^3/uL (134-434); RBC 3.71 M/mm3 (3.60-5.2); RDW 14.7 % (11.6-15.6); WHITE BLOOD COUNT 9.2 K/mm3 (4.0-10.0)
[2024-06-10] MEDS ORDERED: HYDROmorphone *PCA* 10MG/50ML DISP.SYRIN ONE (19:49)
[2024-06-10] MEDS: DEXTROSE 5%-0.45% SALINE 1,000 ML IV SCH (19:54)
[2024-06-10] MEDS: HYDROmorphone *PCA* 10MG/50ML DISP.SYRIN PCA SCH (19:55)
[2024-06-10 20:00] LABS: POTASSIUM 4.8 mmol/L (3.5-5.1)
[2024-06-10 20:04] LABS: CREATININE 0.7 mg/dL (0.55-1.3)
[2024-06-10 20:07] LABS: CALCIUM 8.2 mg/dL (8.5-10.1)
[2024-06-10] MEDS: CHLORHEXIDINE GLUCONATE 4% CLEANSER FOR DECOLONIZATION TP SCH (22:02)
[2024-06-10] MEDS: MUPIROCIN 2% TOPICAL OINTMENT FOR DECOLONIZATION NS SCH (22:02)
[2024-06-10] MEDS: ASPIRIN 325 MG ENTERIC COATED TABLET (FP) PO SCH (22:05)
[2024-06-10] MEDS: CEFAZOLIN 1 GM in DEXTROSE 5%-WATER - 50 ML IVPB SCH (22:05)
[2024-06-10] MEDS: DOCUSATE SODIUM 100 MG CAPSULE (FP) PO SCH (22:05)
[2024-06-11] MEDS: ACETAMINOPHEN 1000 MG/100 ML BAG IVPB SCH (01:01)
[2024-06-11 07:02] LABS: HEMATOCRIT 29.4 % (32.4-45.2); HEMOGLOBIN 9.7 GM/dL (10.7-15.3); MCH 29.5 pg (25.7-33.7); MCHC 33.2 g/dl (32.0-36.0); MEAN CELL VOLUME 88.8 fl (80-96); PLATELET COUNT 171 10^3/uL (134-434); RDW 14.5 % (11.6-15.6); WHITE BLOOD COUNT 5.3 K/mm3 (4.0-10.0)
[2024-06-11 07:14] LABS: POTASSIUM 4.1 mmol/L (3.5-5.1)
[2024-06-11 07:23] LABS: BLOOD UREA NITROGEN 9.3 mg/dL (7-18); CALCIUM 7.7 mg/dL (8.5-10.1)
[2024-06-11 07:26] LABS: CREATININE 0.6 mg/dL (0.55-1.3)
[2024-06-11 07:27] LABS: BILIRUBIN,TOTAL 0.7 mg/dL (0.2-1)
[2024-06-11 07:35] LABS: ALBUMIN 2.4 g/dl (3.4-5.0); TOT PROT 4.2 g/dl (6.4-8.2)
[2024-06-11] MEDS: PANTOPRAZOLE 40 MG TABLET PO SCH (08:17)
[2024-06-11] MEDS: ENOXAPARIN NA (PORCINE) 40 MG/0.4 ML DISP.SYRIN SQ SCH (09:08)
[2024-06-11] MEDS: DEXTROSE 5%-0.45% SALINE 1,000 ML IV SCH (09:10)
[2024-06-11] MEDS: SIMETHICONE 80 MG TAB.CHEW (FP) PO PRN (12:05)
[2024-06-11] MEDS: oxyCODONE HCL 5 MG TABLET PO PRN ×2 (14:09→21:27)
[2024-06-11] MEDS ORDERED: oxyCODONE HCL 5 MG TABLET PO PRN ×2 (18:54)
[2024-06-12] MEDS: ACETAMINOPHEN 500 MG TABLET (FP) PO PRN (05:13)
[2024-06-13] MEDS ORDERED: SIMETHICONE 80 MG TAB.CHEW (FP) PO PRN (10:38)
[2024-06-13] MEDS ORDERED: diazePAM 5 MG TABLET PO PRN (10:38)
[2024-06-13] MEDS ORDERED: ONDANSETRON 4 MG/2 ML VIAL IVPUSH PRN (10:38)
[2024-06-13] MEDS: ACETAMINOPHEN 500 MG TABLET (FP) PO PRN (11:45)
[2024-06-13 13:47] VITALS: BMI 23.6
[2024-06-13] MEDS: CEFAZOLIN 1 GM in DEXTROSE 5%-WATER - 50 ML IVPB SCH (14:25)
[2024-06-13] MEDS: DOCUSATE SODIUM 100 MG CAPSULE (FP) PO SCH (21:10)
[2024-06-13] MEDS: oxyCODONE HCL 5 MG TABLET PO PRN (22:08)
[2024-06-14] MEDS: oxyCODONE HCL 5 MG TABLET PO PRN (05:22)
[2024-06-14] MEDS: PANTOPRAZOLE 40 MG TABLET PO SCH (08:22)
[2024-06-14] MEDS: ASPIRIN 325 MG ENTERIC COATED TABLET (FP) PO SCH (10:53)
[2024-06-14] MEDS: ENOXAPARIN NA (PORCINE) 40 MG/0.4 ML DISP.SYRIN SQ SCH (10:53)
[2024-06-14 12:06] LABS: HEMATOCRIT 26.6 % (32.4-45.2); HEMOGLOBIN 8.8 GM/dL (10.7-15.3); MCH 29.1 pg (25.7-33.7); MEAN PLT VOLUME 7.3 fl (7.5-11.1); PLATELET COUNT 272 10^3/uL (134-434); RBC 3.03 M/mm3 (3.60-5.2); RDW 14.5 % (11.6-15.6); WHITE BLOOD COUNT 4.9 K/mm3 (4.0-10.0)
[2024-06-14 12:40] VITALS: RESP 20
[2024-06-14 14:26] VITALS: BP 120/71; PULSE 112; TEMP 98.8
== END 2024-06-14 18:45 | disposition home or self-care (01) | DRG 909 ==
LOC: J2C 03:55 → JICU 21:30 → J6S 06-13 10:33
PROVIDERS: ADMIT Plastic Surgery; ATTEND Plastic Surgery
PROC: 0HWT0JZ Revision of Synthetic Substitute in Right Breast, Open Approach (ICD-10-PCS; 2024-06-10)
PROC: 07B80ZX Excision of Right Internal Mammary Lymphatic, Open Approach, Diagnostic (ICD-10-PCS; 2024-06-10)
PROC: 07B90ZX Excision of Left Internal Mammary Lymphatic, Open Approach, Diagnostic (ICD-10-PCS; 2024-06-10)
PROC: 0HRV077 Replacement of Bilateral Breast using Deep Inferior Epigastric Artery Perforator Flap, Open Approach (ICD-10-PCS; 2024-06-10)
PROC: 0HWU0JZ Revision of Synthetic Substitute in Left Breast, Open Approach (ICD-10-PCS; 2024-06-10)
PROC: 0HWT0JZ Revision of Synthetic Substitute in Right Breast, Open Approach (ICD-10-PCS; 2024-06-10)
PROC: 07B90ZX Excision of Left Internal Mammary Lymphatic, Open Approach, Diagnostic (ICD-10-PCS; 2024-06-10)
PROC: 0HRV07Z Replacement of Bilateral Breast with Autologous Tissue Substitute, Open Approach (ICD-10-PCS; 2024-06-10)
PROC: 3E0T3BZ Introduction of Anesthetic Agent into Peripheral Nerves and Plexi, Percutaneous Approach (ICD-10-PCS; 2024-06-10)
PROC: [UNRECOGNIZED PROCEDURE] (2024-06-10)
PROC: [UNRECOGNIZED PROCEDURE] (2024-06-10)
PROC: 0H85XZZ Division of Chest Skin, External Approach (ICD-10-PCS; 2024-06-10)
PROC: 0HPU0JZ Removal of Synthetic Substitute from Left Breast, Open Approach (ICD-10-PCS; principal; 2024-06-10 08:00)
PROC: 0HPT0JZ Removal of Synthetic Substitute from Right Breast, Open Approach (ICD-10-PCS; 2024-06-10 08:00)
PROC: 0HWU0JZ Revision of Synthetic Substitute in Left Breast, Open Approach (ICD-10-PCS; 2024-06-10 08:00)
DX: T85.898A Other specified complication of other internal prosthetic devices, implants and grafts, initial encounter (principal); Y83.9 Surgical procedure, unspecified as the cause of abnormal reaction of the patient, or of later complication, without mention of misadventure at the time of the procedure; C50.919 Malignant neoplasm of unspecified site of unspecified female breast; N65.0 Deformity of reconstructed breast; E78.5 Hyperlipidemia, unspecified
CPT/HCPCS: 36415; 71045-TC-FY; 80048; 80053; 85025; 85027; 86850; 86900; 86901; 88300-TC; 88304-TC; 88305-TC; 94760; 97116-GP; 97162-GP; J0131; J1644; J2997